=== PATIENT | male | born 1975 | race Caucasian/White ===

== ENCOUNTER 2019-11-23 11:06 | Emergency (ER) | payer OTHER, SELFPAY ==
[2019-11-23 11:14] VITALS: BP 160/88; PULSE 67; RESP 20; TEMP 37; O2SAT 99
--- NOTE | 2019-11-23 11:23 | ED.GENADULT ---
HPI - General Adult General Chief complaint: Extremity Injury, Upper Stated complaint: right shoulder pain Time Seen by Provider: 11/23/19 11:28 Source: patient Mode of arrival: ambulatory Limitations: no limitations History of Present Illness HPI narrative: 44-year-old male patient presents to the [facility] with complaints of right shoulder pain and requesting an off work note. Patient states that on August 23 he was injured at work and states that he filed for a Workmen's Compensation. Patient states he has seen an Ortho doctor and has been to physical therapy. Patient states that he is currently taking tramadol for his pain. Patient states that they did do an MRI on the shoulder which shows a slight rotator cuff tear. Patient states that the Ortho doctor has written him to go back to work with restrictions. Patient states he is wanting to be off work altogether and is coming here to get a note to be off due to his Workmen's Comp. injury. Related Data Home Medications Medication Instructions Recorded Confirmed tramadol 50 mg PO Q8H PRN 11/23/19 11/23/19 Allergies Allergy/AdvReac Type Severity Reaction Status Date / Time No Known Allergies Allergy Verified 11/23/19 11:32 Review of Systems Review of Systems: Narrative: CONSTITUTIONAL: Denies fever, chills, or sweats. EYES: Denies visual changes, redness, or discharge. ENT: Denies rhinorrhea, congestion, sore throat, or otalgia. CARDIOVASCULAR: Denies chest pain, palpitations, or edema. RESPIRATORY: Denies cough or dyspnea. GASTROINTESTINAL: Denies abdominal pain, nausea, vomiting, or diarrhea. GENITOURINARY: Denies dysuria or hematuria. SKIN: Denies rash or itching. MUSCULOSKELETAL: Denies back pain, joint pain, or myalgia. Positive chronic shoulder pain from work comp injury in early August NEUROLOGIC: Denies headache, numbness, or weakness. PSYCHIATRIC: Denies anxiety or depression. PMFSH Social History Social History Smoking status: Never smoker Comments At the time of my signature I agree with nursing past medical history, surgical, social, and family history. There is no relevant family history pertinent to the presenting complaint. Exam Narrative: Exam Narrative: GENERAL: Well-appearing, well-nourished, and in no acute distress. HEAD: Normocephalic, atraumatic. EYES: PERRLA and EOMI. ENT: Nares clear, no rhinorrhea or epistaxis. Mucous membranes moist. NECK: Supple. No lymphadenopathy CHEST: Clear to auscultation. No respiratory distress. HEART: Regular rate and rhythm. No murmur heard. Normal peripheral pulses. ABDOMEN: Soft, nontender, nondistended, normal active bowel sounds. EXTREMITIES: The R shoulder is without obvious asymmetry or deformity when compared to the L shoulder. No surface trauma, ecchymosis, crepitus. No bony deformity or prominence of the humeral head No erythema, warmth, swelling. no tenderness to palpation to clavicle, tenderness noted to the A to C joint, no tenderness to the acromion, scapula or humeral head. No tenderness to palpation of the bicipital groove or soft tissues. No tenderness to palpation of the muscles of the sterncleidomastoid, pectorals, biceps/triceps, deltoid, trapezius, rhomboid, latissimus dorsi, tenderness to the rotator cuff. pain and limitation with active or passive abduction/adduction, internal/external rotation, flexion/extension. Normal sensation over the deltoid and ability to flex arm at elbow indicates intact axillary nerve function. Distal motor and neurovascular status is intact. SKIN: Warm, dry, no rash. NEURO: No focal deficits. Alert and oriented x3. Course Vital Signs Vital signs: Vital Signs Temperature 37.0 C 11/23/19 11:14 Pulse Rate 67 11/23/19 11:14 Respiratory Rate 20 11/23/19 11:14 Blood Pressure 160/88 H 11/23/19 11:14 Pulse Oximetry 99 11/23/19 11:14 Temperature 37.0 C 11/23/19 11:14 Pulse Rate 67 11/23/19
== END 2019-11-23 11:37 | disposition home or self-care (01) ==
PROVIDERS: Emergency Provider Nurse Practitioner Family
DX: M25.511 Pain in right shoulder (principal); G89.29 Other chronic pain; R03.0 Elevated blood-pressure reading, without diagnosis of hypertension
CPT/HCPCS: 99212; G0463

== ENCOUNTER 2025-03-07 16:12 | Outpatient (CLI) | payer OTHER, SELFPAY ==
--- NOTE | ~2025-03-07 | XR_ITS ---
Abdominal radiograph(s) INDICATION: Left-sided stone COMPARISON: None TECHNIQUE: 2 views supine AP abdomen FINDINGS: Small stone proximal left ureter unchanged in position. No other nephroureteral calculi. Scattered colonic stool. Small bowel loops not well seen. No acute bony abnormality. IMPRESSION: 1. Small stone proximal left ureter. Reviewed, dictated and finalized at location R.
== END 2025-03-07 16:13 | disposition home or self-care (01) ==
PROVIDERS: PCP Urology; Visit Provider Urology
DX: N20.1 Calculus of ureter (principal)
CPT/HCPCS: 74018

== ENCOUNTER 2025-03-09 00:51 | Day surgery (SDC) | payer OTHER, SELFPAY ==
[2025-03-08 14:20] VITALS: BMI 38.9
--- NOTE | 2025-03-08 14:28 | PC.NURSE ---
[facility] has started construction of its new state of the art ER which will open Spring 2026. With this, we anticipate parking may be a challenge for some our surgical patients and families. Parking spaces are limited but are available for all Surgical, obstetrics, and ER patients sharing this lot. If you arrive and find you are having a hard time finding a parking space, please note that we understand the challenges, please drive around the hospital and park near Hospital Entrance 1. When you enter this entrance, you can ask a volunteer to direct or take you back to the surgical waiting area to check in. We appreciate everyone?s understanding of these expected challenges while we build for your future. Report to the Outpatient Waiting Room, entrance under the green pavilion located off [address], at time _1200_ on date _[id number]_. Planned Procedure Time: _2pm_.? Time changes happen often and if your time is changed the preop area will call you the afternoon before. - You and your visitor will be asked to self-screen and do not enter if you have any COVID symptoms. Please call surgeon if you need to reschedule. - A mask is optional within the hospital at this time. Patients may have clear liquids (water, carbonated beverages, clear teas, apple juice) until 3 hours prior to surgery with a maximum of 20 ounces. - No food from midnight until time of surgery and no smoking, or chewing tobacco (or any form of nicotine). No chewing gum, candy or mints. Take only the following medications with a SIP of water on the morning of surgery: ___Hydrocodone if needed. DO NOT STOP ANY OF YOUR OTHER PRESCRIPTION MEDICATIONS PRIOR TO SURGERY EXCEPT THE FOLLOWING Hold all vitamins and supplements for 3 days per anesthesiologist. Medications to discontinue per physician Date to take last dose____ Please no make-up, nail belarusian, hairspray, perfume, deodorant, or body powder the day of surgery.? No jewelry (including any body piercings) or valuables the day of surgery, leave them at home.? Please take a shower or bath the night before, or the morning of, surgery with an antibacterial soap.? Wear comfortable, loose fitting clothing.? - Jewelry must be removed prior to entering the operating room.? Rings and piercings that are not removed may be cut off. - The hospital will not accept responsibility for valuables.? - Please leave all valuables, including medications, at home the day of surgery. If you are going home after surgery, a licensed trailer tank truck driver must drive you home.? - NO public transportation without another adult if you receive anesthesia. - We recommend that an adult stay with you for 24 hours following discharge. - We also recommend that you do not drive, make important decision, drink alcoholic beverages, or take any drugs that were not prescribed by your health care provider for at least 24 hours after your discharge time. Follow any additional instructions given to you from your surgeon. Telephone instructions given to __Carter__and asked if any additional questions and then verbalized understanding. Patient advised to call surgeon office or pre surgery nurse liaison [phone] if any additional questions.
[2025-03-09] VITALS (7 sets, daily range): BP systolic 118–175; BP diastolic 72–97; PULSE 73–78; RESP 12–20; TEMP 36.7–36.9; O2SAT 94–100
--- NOTE | ~2025-03-09 | XR_ITS ---
Abdominal radiograph(s) INDICATION: Left kidney stone, ESWL COMPARISON: 03/07/2025 TECHNIQUE: 2 view supine AP abdomen FINDINGS: Small stone proximal left ureter remains in place. No other nephroureteral calculi identified. Scattered colonic gas and stool. Small bowel loops not well seen. No evidence of organomegaly. No acute bony abnormality. IMPRESSION: 1. Small stone proximal left ureter unchanged in position. Reviewed, dictated and finalized at location R.
--- OUTSIDE RECORDS SUMMARY | 2025-03-09 00:54 | XMS_ITS | Clinical Summary ---
Author Organization [address] [facility] [place] Address [address] [place] [phone] Care Team Providers Care Collection Administrator Name Role Phone Kassandra Connelly MD Primary Care Provider [phone] Allergies Active Allergy Reactions Criticality Noted Date Comments Bacitracin Hives Medium 06/11/2015 Hives Diphenhydramine Itching Low Morphine Nausea & Vomiting Low 01/04/2023 Neomycin Hives Medium 06/11/2015 Hives Uqzzedxx-Uyfxsyijqf-Ahtvi yxin Other (See comments) Low caused an infection Polymyxin B Hives Medium 06/11/2015 Hives Medications traMADoL (ULTRAM) 50 mg tabletIndication s:Pain TAKE 1 TO 2 TABLETS BY MOUTH EVERY 6 HOURS NEEDED FOR PAIN. DO NOT EXCEED 8 TABLETS PER DAY. 30 tablet 0 Active Additional Information Patient taking differently: 50-100 mg oral Every 6 hours PRN, TAKE 1 TO 2 TABLETS BY MOUTH EVERY 6 HOURS NEEDED FOR PAIN. DO NOT EXCEED 8 TABLETS PER DAY., Indications: Pain, Reported on 02/22/2025 naproxen (ALEVE) 220 mg tablet Take 1 tablet (220 mg total) by mouth every 12 (twelve) hours as needed for pain Active acetaminophen (TYLENOL) 325 mg tablet Take 2 tablets (650 mg total) by mouth every 6 (six) hours as needed for pain Active multivitamin capsule Take 1 capsule by mouth daily before breakfast Active fluticasone propionate (FLONASE) 50 mcg/actuation nasal sprayIndications :Allergic Rhinitis Administer 2 sprays into each nostril daily before breakfast Active celecoxib (CeleBREX) 200 mg capsuleIndicatio ns:Incomplete tear of right rotator cuff, unspecified whether traumatic,S/P shoulder surgery,Right shoulder pain, unspecified chronicity TAKE 1 CAPSULE BY MOUTH EVERY DAY 30 capsule 1 Active ibuprofen (ADVIL,MOTRIN) 800 mg tablet TAKE 1 TABLET BY MOUTH EVERY 8 HOURS WITH FOOD NEEDED FOR PAIN 1 Active ondansetron (ZOFRAN) 4 mg tablet TAKE 1 TABLET BY MOUTH EVERY 8 HOURS NEEDED FOR NAUSEA OR VOMITING 1 Active inhaler,assist devices,access deviceIndication s:Chronic cough 1 Device as needed (with inhalers) 1 each 3 Active albuterol HFA (Ventolin HFA) 90 mcg/actuation inhalerIndicatio ns:Severe persistent asthma without complication (HCC),Chronic obstructive pulmonary disease, unspecified COPD type (HCC) Inhale 2 puffs every 4 (four) hours as needed for wheezing or shortness of breath 18 g 5 4 Active budesonide-glyco pyr-formoterol (BREZTRI) 160-9-4.8 mcg/actuation inhalerIndicatio ns:Severe persistent asthma without complication (HCC),Chronic obstructive pulmonary disease, unspecified COPD type (HCC) Inhale 2 puffs 2 (two) times a day 10.7 g 3 5 Active montelukast (SINGULAIR) 10 mg tabletIndication s:Chronic rhinitis Take 1 tablet (10 mg total) by mouth nightly 90 tablet 1 5 025 Active ipratropium-albu teroL (DUO-NEB) 0.5-2.5 mg/3 mL nebulizer solutionIndicati ons:Severe persistent asthma without complication (HCC) Take 3 mL by nebulization 4 (four) times a day as needed for wheezing or shortness of breath 90 mL 5 5 026 Active dexAMETHasone (DECADRON) 6 mg tabletIndication s:Severe persistent asthma without complication (HCC) Take 1 tablet (6 mg total) by mouth daily with breakfast 6 tablet 5 Active Active Problems Problem Noted Date Diagnosed Date Snoring 01/31/2025 Assessment & Plan (01/31/2025 11:43 AM CDT): The patient presents with snoring and excessive daytime hypersomnia. Per his insurance, I have ordered a home sleep test and he will follow up here in 4 months. Severe persistent asthma without complication Severe obesity 12/18/2024 Body mass index 40.0-44.9, adult (CMS/HCC) 12/18 Chronic cough 02/05/2023 Tear of right rotator cuff 05/02/2020 Overview (05/02/2020): Added automatically from request for surgery [id number] Encounters Date Type Department Care Team Description 02/22/2025 12:15 PM CDT Office Visit [facility] Pulmonology [address] [place] [address] [place] [phone] Kassandra Connelly MD Severe persistent asthma without complication (HCC) (Primary Dx); Chronic obstructive pulmonary disease, unspecified COPD type (HCC); Chronic rhinitis; Hemoptysis; Dyspnea and respiratory abnormalities; Lung nodule 02/13/2025 Telephone [facility] [address] [place] [address] Ella Fabian RN Lung Screening 02/09/2025 8:48 AM CDT - 02/09/2025 11:59 PM CDT Hospital Encounter [facility] - PET [address] [facility] Floor [address] [place] [address] Discharge Disposition: Discharge to home or self care 02/09/2025 8:48 AM CDT - 02/09/2025 11:59 PM CDT Hospital Encounter [facility] - PET [address] [facility] Floor [address] [place] [address] Lung nodule Discharge Disposition: Discharge to home or self care 02/06/2025 1:15 PM CDT Office Visit [facility] Medical [facility] Pulmonology [address] [place] [address] [place] [phone] Kassandra Connelly MD Severe persistent asthma without complication (HCC) (Primary Dx); Chronic obstructive pulmonary disease, unspecified COPD type (HCC); Chronic rhinitis; Migraine with aura and without status migrainosus, not intractable; Lung nodule 01/31/2025 11:30 AM CDT Office Visit [facility] Pulmonology [address] [facility] [address] [place] [phone] Romeo Castillo MD Snoring (Primary Dx); Influenza 01/01/2025 6:19 AM CDT - 01/01/2025 11:59 PM CDT Hospital Encounter [facility] Respiratory Therapy [address] [place] [phone] Severe persistent asthma without complication (HCC) Discharge Disposition: Discharge to home or self care 01/01/2025 6:19 AM CDT - 01/01/2025 11:59 PM CDT Hospital Encounter [facility] CT [address] [place] [phone] Cigarette nicotine dependence with other nicotine-induced disorder Discharge Disposition: Discharge to home or self care 12/18/2024 12:55 PM CDT Lab [facility] [address] [place] [address] Severe persistent asthma without complication (HCC); Chronic obstructive pulmonary disease, unspecified COPD type (HCC) 12/18/2024 9:30 AM CDT Office Visit [facility] Pulmonology [facility] [facility] [address] [place] [phone] Kassandra Connelly MD SANDHYA (obstructive sleep apnea) (Primary Dx); Chronic rhinitis; Severe persistent asthma without complication (HCC); Chronic obstructive pulmonary disease, unspecified COPD type (HCC); Cigarette nicotine dependence with other nicotine-induced disorder; Severe obesity (HCC); Body mass index 40.0-44.9, adult (CMS/HCC) (HCC) from Last 3 Months Surgical History Surgery Date Site/Laterality Comments WRIST SURGERY 7 surgeries [id number], crushing injury APPENDECTOMY 06/21/1989 - 06/20/1990 CARPAL TUNNEL RELEASE 06/21/2005 - 06/20/2006 Right FLUORO GUIDED ASPIRATION OR INJECTION INTERMEDIATE JOINT RIGHT 08/05/2020 Right FLUORO GUIDED INJECTION SHOULDER RIGHT 11/04/2020 Right Medical History Medical History Date Comments Obesity Incomplete tear of right rotator cuff Arthritis 2005 Asthma Childhood Family History Medical History Relation Name Comments Hypertension Father Venu Valera Stroke Maternal Grandfather Wale Luther Arthritis Maternal Grandmother Grandma COPD Maternal Grandmother Grandma Arthritis Mother Biological COPD Mother Biological Diabetes Mother Biological Heart attack Mother Biological Heart disease Mother Biological Heart attack Paternal Grandfather Grandpa COPD Paternal Grandmother Grandma Alcohol abuse Neg Hx Anesthesia problems Neg Hx Relation Name Status Comments Father Venu Valera Maternal Grandfather Wale Luther Maternal Grandmother Grandma Mother Biological Other AR age 50s Paternal Grandfather Grandpa Paternal Grandmother Grandma Social History Tobacco Use Types Packs/Day Years Used Date Smoking Tobacco: Former Cigarettes 4 31 0 06/21/1989 - 06/21/2020 Vaping Smokeless Tobacco: Former Chew Quit: 06/21/2015 Tobacco Cessation:Counseling Given: Not Answered Alcohol Use Standard Drinks/Week Comments Yes 0 (1 standard drink = 0.6 oz pur e alcohol) AUDIT-C Answer Date Recorded Frequency of Alcohol Consumption Not on file 01/04/2023 Q2: How many drinks containi ng alcohol do you have on a typical day when you are drinking? Patient does not drink Frequency of Binge Drinking Not on file 12/19 Sex and Gender Information Value Date Recorded Sex Assigned at Not on file Legal Sex Male 6:54 AM [employer]ARY [employer] Gender Identity Male 08/23/2020 9:26 AM [employer] TE[employer]ER Sexual Orientation Straight 08/23/2020 9: 26 AM [employer]ARY [employer] TE[employer]ER Obstetrics History Last Filed Vital Signs Vital Sign Reading Time Taken Comments Blood Pressure 146/95 02/22/2025 12:00 PM CDT Pulse 89 02/22/2025 12:00 PM CDT Temperature 36.2 C (97.1 F) 02/22/2025 12:00 PM CDT Respiratory Rate 18 02/22/2025 12:00 PM CDT Oxygen Saturation 97% 02/22/2025 12:00 PM CDT Inhaled Oxygen Concentration - - Weight 137.4 kg (303 lb) 02/22/2025 12:00 PM CDT Height 182.9 cm (6') 02/22/2025 12:00 PM CDT Body Mass Index 41.09 02/22/2025 12:00 PM CDT Plan of Treatment Health Maintenance Due Date Last Done Comments Colon Cancer Screening-Colonoscopy 1974 Depression Screening 1974 Prostate Cancer Screening-PSA 1974 DTaP/Tdap/Td Vaccine (1 - Tdap) 1985 Regular Well Visit/Exam 18-64 1992 Pneumococcal vaccine <65 (1 of 2 - PCV) 1993 Zoster Vaccine (1 of 2) 2024 Influenza Vaccine (#1) 2025 Lung Cancer Screening 01/01/2026 01/01/2025 Hepatitis B Screening Completed 06/11/2015 Hepatitis C Screening Completed 06/11/2015 Medical Devices Implanted Type Area Towel Sewer Device Identifier Shelf Expiration Date Model / Serial / Lot Screw Screw Right: Wrist Procedures Procedure Name Priority Date/Time Associated Diagnosis Comments PET/CT FDG SKULL TO THIGH Schedule Routine, Read Routine (OP Routine) 02/09/2025 10:56 AM CDT Lung nodule PULMONARY FUNCTION TEST (PFT) Routine 01/01/2025 8:22 AM CDT Severe persistent asthma without complication (HCC) CT LUNG CANCER SCREENING Schedule Routine, Read Routine (OP Routine) 01/01/2025 6:32 AM CDT Cigarette nicotine dependence with other nicotine-induced disorder DIFFERENTIAL AUTO Routine 12/18/2024 1:0 9 PM CDT Severe persistent asthma without complication (HCC) CBC WITH AUTO DIFFERENTIAL Routine 12/18/2024 1:09 PM CDT Severe persistent asthma without complication (HCC) PRO B-TYPE NATRIURETIC PEPTIDE Routine 12/18/2024 1:09 PM CDT Severe persistent asthma without complication (HCC) Chronic obstructive pulmonary disease, unspecified COPD type (HCC) IGE Routine 12/18/2024 1:09 PM CDT Severe persistent asthma without complication (HCC) ANTI-NEUTROPHILIC CYTOPLASMIC ANTIBODY (ANCA) WITH REFLEX TO MPO AND PR3 ABS Routine 12/18/2024 1:09 PM CDT Severe persistent asthma without complication (HCC) ALLERGEN ASPERGILLUS FUMIGATUS (MOLD) IGE Routine 12/18/2024 1:09 PM CDT Severe persistent asthma without complication (HCC) ASPERGILLUS FUMIGATUS IGG Routine 12/18/2024 1:09 PM CDT Severe persistent asthma without complication (HCC) HEPATITIS PANEL, ACUTE Routine 06/11/2015 3:06 PM [employer]ER from Last 3 Months or Most Recently Relevant to Health Maintenance Results * PET/CT FDG Skull to Thigh (02/09/2025 10:56 AM CDT) Anatomical Region Laterality Modality N/A Positron Emissio n Tomography (PET) 02/09/2025 2:08 PM CDT Impressions 02/09/2025 2:57 PM CDT 1. 8 mm right lower lobe pulmonary nodule with background uptake, too small to be fully characterized by PET/CT and may represent a adenocarcinoma spectrum lesion versus benign pulmonary nodule. Dictated by: Peng Flores M.D. The radiology attending physician has personally reviewed this study, and had reviewed and/or edited this written report and agrees with it. Electronically signed by: Zohreh Werner MD, Ph.D Narrative 02/09/2025 2:57 PM CDT EXAMINATION: TUMOR FDG-PET/CT IMAGING DATE OF STUDY: 02/09/2025 SCANNER: [facility] [employer] (SQ1). This is a high-resolution scanner, which can result in higher SUVs (and even detection of previously unrecognized small lesions) compared to older scanners. RADIOPHARMACEUTICAL: 10.0 mCi F-18 Fluorodeoxyglucose (FDG) i.v. Injection site: Left forearm HISTORY: 49-year-old male smoker with recent CT showing a right lower lobe pulmonary nodule. The study is requested for diagnosis. Initial treatment strategy. TECHNIQUE: The patient's fasting blood glucose level, measured by glucometer before injection of FDG, was 109 mg/dL. After intravenous administration of FDG, noncontrast CT images were obtained for attenuation correction and for fusion with emission PET images to allow for anatomical localization of PET findings. Emission PET images were then obtained. The study was interpreted on the [employer] workstation. The mean liver SUV (reported for vice president quality improvement purposes) is 3.2. The total scanned area was skull vertex to proximal thighs. Images of the body were obtained starting 64 minutes after injection of tracer. All reported SUVs are maximum SUVs, unless otherwise specified. COMPARISON: CT chest on 01/01/2025 DESCRIPTORS OF LESION FDG AVIDITY: Minimal: <= blood pool Mild: > blood pool and <= liver Moderate: > liver and <= 2x SUVmax liver Moderate to marked: >2x SUVmax liver and <= 3x SUVmax liver Marked: > 3x SUVmax liver FINDINGS: 8 mm, spiculated right lower lobe pulmonary nodule without significant radiotracer uptake. Additional CT findings: Dental restorations. Nonobstructing left renal calculus. Atherosclerotic calcifications of the abdominal aorta. Procedure Note Zohreh Simpson MD PhD - 02/09/2025 EXAMINATION: TUMOR FDG-PET/CT IMAGING DATE OF STUDY: 02/09/2025 SCANNER: [facility] [employer] (SQ1). This is a high-resolution scanner, which can result in higher SUVs (and even detection of previously unrecognized small lesions) compared to older scanners. RADIOPHARMACEUTICAL: 10.0 mCi F-18 Fluorodeoxyglucose (FDG) i.v. Injection site: Left forearm HISTORY: 49-year-old male smoker with recent CT showing a right lower lobe pulmonary nodule. The study is requested for diagnosis. Initial treatment strategy. TECHNIQUE: The patient's fasting blood glucose level, measured by glucometer before injection of FDG, was 109 mg/dL. After intravenous administration of FDG, noncontrast CT images were obtained for attenuation correction and for fusion with emission PET images to allow for anatomical localization of PET findings. Emission PET images were then obtained. The study was interpreted on the [employer] workstation. The mean liver SUV (reported for vice president quality improvement purposes) is 3.2. The total scanned area was skull vertex to proximal thighs. Images of the body were obtained starting 64 minutes after injection of tracer. All reported SUVs are maximum SUVs, unless otherwise specified. COMPARISON: CT chest on 01/01/2025 DESCRIPTORS OF LESION FDG AVIDITY: Minimal: <= blood pool Mild: > blood pool and <= liver Moderate: > liver and <= 2x SUVmax liver Moderate to marked: >2x SUVmax liver and <= 3x SUVmax liver Marked: > 3x SUVmax liver FINDINGS: 8 mm, spiculated right lower lobe pulmonary nodule without significant radiotracer uptake. Additional CT findings: Dental restorations. Nonobstructing left renal calculus. Atherosclerotic calcifications of the abdominal aorta. IMPRESSION: 1. 8 mm right lower lobe pulmonary nodule with background uptake, too small to be fully characterized by PET/CT and may represent a adenocarcinoma spectrum lesion versus benign pulmonary nodule. Dictated by: Peng Flores M.D. The radiology attending physician has personally reviewed this study, and had reviewed and/or edited this written report and agrees with it. Electronically signed by: Zohreh Werner MD, Ph.D us Kassandra Connelly MD IMG PET PROCEDURES Final Resu lt * (ABNORMAL) Pulmonary Function Test - (01/01/2025 8:22 AM CDT) FVC POST 3.38(A) 4.29 - 6.72 L [facility] FEV1 POST 2.95(A) 3.34 - 5.20 L [facility] [id number] 87.31 67.56 - 87.81 % [facility] WGD31-26% POST 4.35 2.05 - 6.10 L/s [facility] PEF POST 7.14(A) 7.39 - 11.38 L/s [facility] DLCOc SB 15.86(A) 26.73 - 40.58 ml/(min*mm Hg) [facility] DLCO/VA PRE 4.25 3.24 - 5.46 ml/(min*mm Hg*L) [facility] VA 3.73(A) 7.59 - 7.59 L [facility] TLC PRE 4.89(A) 6.58 - 8.89 L [facility] VC PRE 3.45(A) 4.34 - 6.18 L [facility] IC PRE 3.10(A) 3.86 - 3.86 L [facility] FRC PL PRE 1.79(A) 2.71 - 4.69 L [facility] ERV PRE 0.36(A) 1.40 - 1.40 L [facility] RV PRE 1.43(A) 1.62 - 2.97 L [facility] VTG 1.94 L [facility] RAW PRE 2.41(A) 3.06 - 3.06 cmH2O*s/L [facility] FVC PRE 3.45(A) 4.29 - 6.72 L [facility] FEV1 PRE 3.01(A) 3.34 - 5.20 L [facility] [id number] 87.04 67.56 - 87.81 % [facility] AOW13-34% PRE 4.23 2.05 - 6.10 L/s [facility] PEF PRE 7.47 7.39 - 11.38 L/s [facility] Anatomical Region Laterality Modality PFT 01/01/2025 7:36 AM CDT Narrative 01/02/2025 3:57 PM CDT PFT INTERPRETATION Spirometry: Restrictive pattern No significant bronchodilator response Flow volume loop: Normal/unrevealing Lung volumes: Severe restrictive ventilatory. Severely decreased ERV DLCO: Severe diffusion impairment Electronically signed by Kassandra Connelly MD Kassandra Connelly MD PFT ORDERABLES Final Result * CT Lung Cancer Screening (01/01/2025 6:32 AM CDT) Anatomical Region Laterality Modality Chest N/A Computed Tomogra phy 01/09/2025 8:16 AM CDT Narrative 01/09/2025 8:21 AM CDT EXAM DESCRIPTION: CT LUNG CANCER SCREENING REASON FOR STUDY: Screening CT of the chest in a former smoker with a 84 pack year smoking history. Additional history: None. TECHNIQUE: Low dose CT scan of the chest was performed without intravenous contrast using helical scanning technique. The exam extends from the lung apices through the lung bases. Automatic exposure control was used as a dose optimization technique. NOTE: This study was performed for the specific purposes of lung cancer screening and is not an alternative to diagnostic chest CT. RADIATION DOSE: CT dose index volume (CTDIvol) = 2.89 mGy COMPARISON: None FINDINGS: SMOKING RELATED LUNG DISEASE: No significant emphysematous change LUNG NODULES: There is a 9 mm somewhat spiculated right lower lobe nodule (image 24). A 3 mm nodule seen in the left upper lobe (image 91). CORONARY ARTERY CALCIFICATION: None OTHER: The heart is normal in size. No pneumothorax or pleural effusions are present. No mediastinal or hilar lymphadenopathy is apparent. IMPRESSION: 1. Pulmonary nodules including a somewhat spiculated right lower lobe nodule. Lung-RADS category 4AS: Suspicious. Finding other than a pulmonary nodule which is potentially clinically significant. Recommendation: PET-CT is recommended for further evaluation. THIS IS AN ELECTRONICALLY VERIFIED FINAL REPORT 01/09/2025 8:21 AM - Electronically signed by Peng Fuentes M.D. BS: BS Report ID: [id number] Reading Location: [place] [address] Kassandra Connelly MD IM CT PROCEDURES Final Resul t * (ABNORMAL) Differential, auto (12/18/2024 1:09 PM CDT) Pathologist [facility] Neutrophil abs 11.21(H) 1.50 - 6.50 K/cumm Imm gran abs 0.11(H) 0.00 - 0.10 K/cumm [facility] Lymphocyte abs 2.86 0.80 - 3.30 K/cumm [facility] Monocyte abs 1.01(H) 0.20 - 0.80 K/cumm [facility] Eosinophil abs 0.48 0.00 - 0.50 K/cumm [facility] Basophil abs 0.08 0.00 - 0.10 K/cumm [facility] Neutrophil pct 71.2 % [facility] Comment: Interpretive Data Percent cell count reference ranges are not reported, since discordance with absolute values may lead to misinterpretation of CBC data. Current Interpretive Data was last revised on 2017. Imm gran pct 0.7 % [facility] Comment: Interpretive Data Percent cell count reference ranges are not reported, since discordance with absolute values may lead to misinterpretation of CBC data. Current Interpretive Data was last revised on 2017. Lymphocyte pct 18.2 % [facility] Comment: Interpretive Data Percent cell count reference ranges are not reported, since discordance with absolute values may lead to misinterpretation of CBC data. Current Interpretive Data was last revised on 2017. Monocyte pct 6.4 % [facility] Comment: Interpretive Data Percent cell count reference ranges are not reported, since discordance with absolute values may lead to misinterpretation of CBC data. Current Interpretive Data was last revised on 2017. Eosinophil pct 3.0 % [facility] Comment: Interpretive Data Percent cell count reference ranges are not reported, since discordance with absolute values may lead to misinterpretation of CBC data. Current Interpretive Data was last revised on 2017. Basophil pct 0.5 % [facility] Comment: Interpretive Data Percent cell count reference ranges are not reported, since discordance with absolute values may lead to misinterpretation of CBC data. Current Interpretive Data was last revised on 2017. Blood 12/18/2024 1:09 PM CDT 12/18/2024 1:22 PM CDT us Kassandra Connelly MD LAB BLOOD ORDERABLES Final Re sult [facility] [address] [facility] Department [place] [address] * Pro B-type natriuretic peptide (12/18/2024 1:09 PM CDT) NT-proBNP <36 <=300 pg/mL Comment: Interpretive Comments: A. Dyspnea in Acute Care Setting All Ages: < 300 pg/ml, acute heart failure unlikely. < 50 yrs: 300 - 450 pg/ml, further investigation warranted. > 450 pg/ml, acute heart failure likely. 50 - 74 yrs: 300 - 900 pg/ml, further investigation warranted. > 900 pg/ml, acute heart failure likely . > or = 75 yrs: 450 - 1800 pg/ml, further investigation warranted. > 1800 pg/ml, acute heart failure likely. B. Non-acute Setting < 75 yrs < 125 pg/ml, rules out heart failure. > or = 125 pg/ml, further investigation warranted. > or = 75 yrs < 450 pg/ml, rules out heart failure. > or = 450 pg/ml, further investigation warranted. - Knowledge of each individual patient's NT-proBNP range may be more useful than using similar cut-points for every patient. Please note that marked elevations in NT-proBNP levels may be observed in state other than Left Ventricular Congestive Failure, including: acute coronary syndromes, right heart strain/failure (including pulmonary embolism and cor pulmonale), critical illness, renal failure, as well as advanced age. - References: 1. Shaan ADKINS et.al. Eur Heart J. 2006:27:330-337. 2. Daniel RW, Jeferson GARDNER. J. AM Live Cardiol: Cardiovasc Imag. 2009;2: 216- 225. Interpretive Data Last Revised Date: 2018. Blood 12/18/2024 1:09 PM CDT 12/18/2024 1:22 PM CDT Kassandra Connelly MD LAB BLOOD ORDERABLES Final Re sult Performing Organization Address [facility] de Phone Number HARIND[facility] [address] [place] [address] * Allergen Aspergillus fumigatus (mold) IgG (12/18/2024 1:09 PM CDT) A. fumigatus IgG 52.6 <=102 mg/L [facility] Comment: ADDITIONAL INFORMATION This test was developed and its performance characteristics determined by [facility] in a manner consistent with CLIA requirements. This test has not been cleared or approved by the U.S. Food and Drug Administration. Test Performed by: [facility] [address] [place] [address] Turf Keeper: Ivana Garg Ph.D.; CLIA# [id number] Blood 12/18/2024 1:09 PM CDT 12/18/2024 2:18 PM CDT Kassandra Connelly MD LAB BLOOD ORDERABLES Final Re sult Performing Organization Address [facility]/ZIP Co de Phone Number [address] [facility] [place], [place] [id number] [facility] * Anti-Neutrophilic Cytoplasmic Antibody (ANCA) with Reflex to MPO and PR3 Abs (12/18/2024 1:09 PM CDT) Pathologist [facility] [place] ANCA Negative Comment:Testing performed by : [facility], [address] [place]., [address] Blood 12/18/2024 1:09 PM CDT 12/18/2024 3:29 PM CDT Kassandra Connelly MD LAB BLOOD ORDERABLES Final Re sult Performing Organization Address City/[facility]/ZIP Co de Phone Number [facility] [address] [place] [address] * (ABNORMAL) CBC with auto differential (12/18/2024 1:09 PM CDT) [facility] WBC 15.75(H) 3.80 - 9.90 K/cumm Hgb 14.0 13.0 - 17.5 g/dL [facility] Hct 43.0 38.9 - 50.3 % [facility] Plt 219 150 - 400 K/cumm [facility] MPV 11.2 9.1 - 12.3 fL [facility] RBC 4.97 4.30 - 5.80 M/cumm [facility] MCV 86.5 81.3 - 96.4 fL [facility] MCH 28.2 27.1 - 33.3 pg [facility] MCHC 32.6 32.3 - 35.7 g/dL [facility] RDW CV 14.4 11.1 - 14.9 % [facility] RDW SD 45.7 35.7 - 48.1 fL [facility] NRBC abs 0.00 0.00 - 0.01 K/cumm [facility] Blood 12/18/2024 1:09 PM CDT 12/18/2024 1:22 PM CDT Kassandra Connelly MD LAB BLOOD ORDERABLES Final Re sult Performing Organization Address City/[facility]/ZIP [place] [address] [place] [address] [place] [address] * (ABNORMAL) Allergen Aspergillus fumigatus (mold) IgE (12/18/2024 1:09 PM CDT) [facility] Aspergillus fumigatus IgE 1.75(H) 0.00 - 0.34 kUnits/L Comment:Testing performed by : [facility], [address] [place]., [address] Blood 12/18/2024 1:09 PM CDT 12/18/2024 6:45 PM CDT Kassandra Connelly MD LAB BLOOD ORDERABLES Final Re sult [address] [address] * (ABNORMAL) IgE (12/18/2024 1:09 PM CDT) [facility] IgE 345(H) <=100 IUnits/mL Blood 12/18/2024 1:09 PM CDT 12/18/2024 1:22 PM CDT Kassandra Connelly MD LAB BLOOD ORDERABLES Final Re sult Performing Organization Address City/[facility] Co de Phone Number [address] [address] * Hepatitis panel, acute (06/11/2015 3:06 PM SECONDARY SOCIAL STUDIES TEACHER) [facility] HepBsAg NONREACT NONREACTIVE 06/11/2015 4:15 PM SECONDARY SOCIAL STUDIES TEACHER [facility] [employer] HISTORICAL RESULTS Comment: Siemens CentaurXP using LAUREN (chemiluminescent immunoassay) technology. NONREACTIVE: IgM antibodies to Hepatitis B Surface antigen not detected. REACTIVE: IgM antibodies to Hepatitis B Surface antigen detected. Reactive results will be confirmed by neutralization testing. HBsAb (immune status) NONREACT NONREACTIVE 06/11/2015 4:03 PM SECONDARY SOCIAL STUDIES TEACHER [facility] [employer] HISTORICAL RESULTS Comment: Siemens CentaurXP using LAUREN (chemiluminescent immunoassay) technology. NONREACTIVE: IgM antibodies to Hepatitis B Surface antibody not detected. REACTIVE: IgM antibodies to Hepatitis B Surface antibody detected. Hep B core IgM NONREACT NONREACTIVE 5 4:41 PM SECONDARY SOCIAL STUDIES TEACHER [facility] HISTORICAL RESULTS Comment: Siemens CentaurXP using LAUREN (chemiluminescent immunoassay) technology. NONREACTIVE: IgM antibodies to Hepatitis B Core antigen not detected. EQUIVOCAL: IgM antibodies to Hepatitis B Core antigen may or may not be present. Obtain a new specimen and retest. REACTIVE: IgM antibodies to Hepatitis B Core antigen detected. Hep A IgM NONREACT NONREACTIVE 06/11/2015 4:43 PM SECONDARY SOCIAL STUDIES TEACHER [facility] HISTORICAL RESULTS Comment: Siemens CentaurXP using LAUREN (chemiluminescent immunoassay) technology. NONREACTIVE: IgM antibodies to Hepatitis A not detected. This does not exclude possibility of exposure to Hepatitis A or early acute infection. EQUIVOCAL:IgM antibodies to Hepatitis A may or may not be present. Suggest recollection and retest. REACTIVE: Antibodies to Hepatitis A detected. Hep C Ab NONREACT NONREACTIVE 06/11/2015 4:41 PM SECONDARY SOCIAL STUDIES TEACHER [facility] HISTORICAL RESULTS Comment: [employer] CentaurXP using LAUREN (chemiluminescent immunoassay) technology. NONREACTIVE: Antibodies to Hepatitis C not detected. This does not exclude early acute Hepatitis C infection, possibility of exposure to Hepatitis C, antibodies below detection limit, or to lack of antibody reactivity to the antigen used in this assay. EQUIVOCAL: Antibodies to Hepatitis C may or may not be present. Sample to be confirmed by real-time PCR method. REACTIVE: Antibodies to Hepatitis C detected. 06/11/2015 3:06 PM SECONDARY SOCIAL STUDIES TEACHER 06/11/2015 3:20 PM SECONDARY SOCIAL STUDIES TEACHER Narrative [facility] HISTORICAL RESULTS - 06/11/2015 4:41 PM SECONDARY SOCIAL STUDIES TEACHER Jensen Mcguire NP LAB MICROBIOLOGY - GENERAL ANICETO COHEN Final Result [facility] HISTORICAL RESULTS from Last 3 Months or Most Recently Relevant to Health Maintenance Insurance [employer] [facility] CARE OTHER [facility] Care Teams Collection Administrator Relationship Specialty Start Date End Date Kassandra Connelly MD [facility] [address] [address] PCP - General Pulmonary Disease 03/08/25
--- OUTSIDE RECORDS SUMMARY | 2025-03-09 00:54 | XMS_ITS | Clinical Summary ---
Author Organization [employer] Zoya Wright Address [address] [facility] [place] [address] Phone Care Team Providers Care Injection Moulding Machine Operator Name Role Phone Unavailable Primary Care Provider Unavailabl e Social History Tobacco Use Types Packs/Day Years Used Date Smoking Tobacco: Never Assessed Sex and Gender Information Value Date Recorded Sex Assigned at Not on file Legal Sex Male 9:47 PM CDT Gender Identity Not on file Sexual Orientation Not on file Plan of Treatment Health Maintenance Due Date Last Done Comments DTAP/TDAP/TD VACCINES (1 - Tdap) 1993 HEPATITIS B VACCINES (1 of 3 - 19+ 3-dose series) 07/1992 COLORECTAL SCREENING 2019 Colorectal Cancer Screening 2019 FIT-DNA Q 3 years 2019 FIT/FOBT Q 1 year 2019 Flex Sig/CT Colonography Q 5 years 2019 ZOSTER VACCINE (1 of 2) 2024 INFLUENZA VACCINE (#1) 2025 Insurance DAVID JUAREZ
--- NOTE | 2025-03-09 06:19 | WPDHPUPDATE1 ---
History and Physical Update Update Date/Time: 03/09/25 06:19 History and Physical has been reviewed, including an updated exam of the patient. There are NO changes in the patient's condition. Risks, benefits, and alternatives have been discussed and questions answered. Patient agrees to proceed with procedure.
--- NOTE | 2025-03-09 08:09 | ECG_ITS ---
Test Date: 2025-03-09 12:50:34 Measurements Intervals Emery Rate: 76 P: 36 WY: 168 QRS: 3 QRSD: 83 T: 13 QT: 371 QTc: 417 Interpretive Statements SINUS RHYTHM NONSPECIFIC ST ABNORMALITY ABNORMAL ECG No previous ECG available for comparison Electronically Signed On 03-09-2025 13:07:54 CDT by Filiberto Pena M.D.
[2025-03-09] MEDS: LACTATED RINGERS 1,000 ML 30 ML IV CONT ×2 (12:25→14:17)
[2025-03-09 12:33] LABS: INR 1.2; Prothrombin Time 14.8 Seconds (11.1-14.7)
[2025-03-09 12:34] LABS: Partial Thromboplastin Time 30.3 Seconds (22.3-36.8)
--- NOTE | 2025-03-09 12:58 | WPDANESEPPF ---
Anes - Initial Pre Proc Eval Procedure: Operation Date: 03/09/25 14:00 Proposed Procedures p Left Ureteral Extracorporeal Shock Wave Lithotripsy - Henri Hoff MD Date/Time: 03/09/25 12:58 Surgeon: Henri Hoff MD Pre Op Diagnosis: left ureteral stone Patient Data Age: 49 Gender: M Height: 1.85 m Weight: 132.8 kg Last Vital Signs Temp 98.5 F 03/09/25 12:19 Pulse 78 03/09/25 12:19 Resp 16 03/09/25 12:19 BP 157/90 H 03/09/25 12:19 Pulse Ox 99 03/09/25 12:19 O2 Del Method Room Air 03/09/25 12:19 Allergies Allergy/AdvReac Type Severity Reaction Status Date / Time bacitracin (From Neosporin Allergy Severe Rash Verified 03/09/25 12:17 ([id number])) neomycin (From Neosporin Allergy Severe Rash Verified 03/09/25 12:17 ([id number])) polymyxin B (From Neosporin Allergy Severe Rash Verified 03/09/25 12:17 ([id number])) Home Medications ?Medication ?Instructions ?Recorded ?Confirmed ?Type elderberry fruit 200 mg capsule 200 mg PO DAILY 03/08/25 03/08/25 History hydrocodone 5 mg-acetaminophen 325 1 tablet PO Q6H PRN pain 03/08/25 03/08/25 History mg tablet magnesium oxide 150 mg-herbal 1 tablet PO DAILY 03/08/25 03/08/25 History drugs tablet (Beet Root-Magnesium) multivitamin with minerals-folic 1 tablet PO DAILY 03/08/25 03/08/25 History acid 80 mcg chewable tablet (Centrum Adult 50 Plus) tamsulosin 0.4 mg capsule 0.4 mg PO DAILY 03/08/25 03/08/25 History Laboratory Tests 03/09/25 12:02 PT 14.8 H Seconds (11.1-14.7) INR 1.2 APTT 30.3 Seconds (22.3-36.8) Patient hx anesthesia problems: none Family hx anesthesia problems: none Results Review: All pre-operative results and documents have been reviewed as part of the pre-operative evaluation. [facility] Social History Social History (Reviewed 03/09/25 @ 12:58 by JEWELL Moore Smoking packs per day: 3 Smoking cigarettes per day: 60.0 Years smoked: 29 Smoking pack-years: 87.00 Smoking status: Former smoker Tobacco type: cigarettes Smoking end date: 03/08/19 Living arrangements: with family Spiritual care concerns: No Anes - Eval Final PreProcedure Day of Procedure 03/09/25 12:58 Patient weight: obese Lungs: normal air movement Airway: Mallampati scale class II Neurological: alert and oriented Last oral intake: >/= 8 hours ASA classification: III Emergent: no Anesthetic plan: proceed Anesthesia type and monitoring: general LMA and standard monitoring Results Review: All pre-operative results and documents have been reviewed as part of the pre-operative evaluation. BMI 38, heavy prev smoker. Informed Consent: The patient's anesthetic plan and its attendant risks and benefits were discussed with the patient/family/POA. Questions were solicited and answers provided to the satisfaction of the patient/family/POA.
[2025-03-09 13:15] LABS: Add Urine Microscopic? YES; Appearance Urine Clear (Clear); Glucose Urine UA Negative (Negative); Leukocyte Esterase Ur 1+ LEU/UL (Negative); Need Manual Microscopic Reviewed; Nitrate Urine Negative (Negative); Non Pathogenic Casts 0-2; Specific Grav Ur 1.017 (1.001-1.035)
[2025-03-09] MEDS: ceFAZolin 3 GM/D5W 100 ML 100 ML IVPB (13:25)
--- NOTE | 2025-03-09 13:38 | W.PM.PROC2 ---
Procedure Note - Detailed Date of Procedure 03/09/25 Pre-op Diagnosis Left ureteral stone Post-op Diagnosis Same Procedure Performed Left ESWL Surgeon Henri Hoff MD Anesthesia General Description of Procedure The patient was brought to the operative suite where he was placed in the supine position on the Dornier lithotripsy table. The focal point of the lithotripter was placed at a 6mm left mid-ureterl calculus. A total of 3000 shocks were delivered at a power setting of 6. There appeared to be good fragmentation of the stone. The patient tolerated the procedure well and was taken to the recovery room in good condition.
[2025-03-09] MEDS: fentaNYL CITRATE INJ (*CRX) 100 MCG/2 ML VIAL 25 MCG IV PUSH ×2 (14:42→14:45)
== END 2025-03-09 15:59 | disposition home or self-care (01) ==
PROVIDERS: Visit Provider Urology
PROC: (CPT 50590; principal; 2025-03-09 14:00)
DX: N20.1 Calculus of ureter (principal); Z87.891 Personal history of nicotine dependence; E66.9 Obesity, unspecified; Z68.38 Body mass index [BMI] 38.0-38.9, adult
CPT/HCPCS: 50590; 36415; 74018; 81001; 85610; 85730; 87086; 93005; J0690; J2003; J2250; J2405; J2704; J3010; J7120